=== PATIENT | male | born 1980 | race Caucasian/White ===

== ENCOUNTER 2022-11-25 15:41 | Outpatient (REF) | payer SELFPAY ==
[2022-11-25 15:32] LABS: Anion Gap 5.4 mmol/L (3-11); BUN 21 mg/dL (7-18); CO2 32.6 mmol/L (21.0-32.0); CREATININE 1.2 mg/dL (0.70-1.30); Calcium 9.1 mg/dL (8.5-10.1); Chloride 102 mmol/L (98-107); Estimated GFR 77.43 (mL/min/1.73m2); Glucose 99 mg/dL (74-106); Potassium 3.4 mmol/L (3.5-5.1); Sodium 140 mmol/L (136-145)
[2022-11-25 15:55] LABS: Calculated LDL 116 mg/dL (<100); Cholesterol 184 mg/dL (<200); HDL Cholesterol 61 mg/dL (40-60); Triglyceride 38 mg/dL (<150)
== END 2022-11-25 15:42 | disposition home or self-care (01) ==
LOC: NCHCN 15:41
PROVIDERS: Visit Provider Physician Assistant
DX: Z00.00 Encounter for general adult medical examination without abnormal findings (principal); Z13.220 Encounter for screening for lipoid disorders; Z13.228 Encounter for screening for other metabolic disorders
CPT/HCPCS: 80048; 80061

== ENCOUNTER 2024-10-01 10:43 | Day surgery (SDC) | payer BC, SELFPAY ==
--- NOTE | 2024-10-01 10:21 | W.PM.DSUDISC ---
Date of service: 10/01/24 Discharge Plan Disposition Patient Disposition: Home Condition: Good Discharge Details Reason For Visit: Right ring finger ganglion cyst Attending Provider: Shaw Rosas Primary Care Provider: Nahid Umaña Home Meds and New Rx's Prescriptions: Continued Claritin-D 12 Hour 5-120 mg tablet extended release 12 hr 1 tab PO Q12H PRN Discharge Instructions Additional Instructions: Cyst Excision Discharge Instructions Activity: You should keep the hand elevated as much as possible for the first few days. You may use the other fingers as tolerated but avoid trying to do too much too soon. You may perform light activities with the dressing in place. Dressing: Your dressing may be removed after 48 hours. Clean incision and cover with light gauze dressing or bandaide daily. Medications: - You should take Tylenol and Ibuprofen for baseline pain control. - You may apply ice over the finger. Follow-up: 7-10 days Stand Alone Forms: Mirna Stock ([facility]) Referrals: Shaw Rosas MD [ [facility] STAFF PHYSICIAN] - Activity:: Elevate Remove Dressings/Wound Care:: 48 hours Shower/Bathe:: 48 hours Diet:: As Tolerated Discharge Orders Discharge Orders: Discharge Order (Routine); Ordered 10/01/24 Ordered By: Benita Vega
[2024-10-01 10:42] VITALS: BP 129/72; PULSE 94; RESP 18; TEMP 37; O2SAT 98
[2024-10-01] MEDS: Sodium Bicarbonate 50 MEQ/50 ML VIAL (11:15)
[2024-10-01] MEDS: Lidocaine 1% Pres-Free W/EPI 1/200,000 10 ML VIAL (11:15)
[2024-10-01 11:30] VITALS: BP 119/74; PULSE 90; RESP 16; TEMP 36; O2SAT 97
--- NOTE | 2024-10-01 14:05 | W.PM.OP ---
Operative Note Operative Note PRE-OP DIAGNOSIS: Right Ring Finger Cyst POST-OP DIAGNOSIS: same (Right Ring Finger Epidermoid Cyst) PROCEDURE: Epidermoid Cyst Excision - Right Ring Finger SURGEON: Shaw Rosas ANESTHESIA TYPE: Local By Surgeon Refer to Anesthesia Record ESTIMATED BLOOD LOSS: 0 PATHOLOGY: none sent COMPLICATIONS: None Patient was transported to: same day Patient's condition: stable Indications: I have seen Domo in clinic for symptoms of a cyst about the right ring finger. The mass persisted and caused pain to direct contact and with use. The likely diagnosis of a epidermoid cyst was made. The symptoms had not responded to conservative measures. I discussed cyst excision with the patient. I reviewed the risks of the procedure to include, but not limited to, bleeding, infection, pain, stiffness, recurrence, damage to nerves or vessels. Despite these risks, the patient elected to proceed. Findings: The mass about the ulnar aspect of the ring finger was identified with a glossy white capsule. There were no adhesions to the capsule and it was easily removed from the finger. The internal portions of the capsule had a caseating type appearance consistent with epidermoid cyst. Procedure Description: Domo was greeted in the preoperative holding area where the correct side was identified and marked. The consent was reviewed with the patient and signed. All questions were answered. He was taken back to the operating room. The patient was placed into the supine position on the operating room table with the right arm on an arm board. All bony prominences were well padded. No prophylactic antibiotics were administered since this was a clean, elective hand surgical case. The right arm was then prepped with Chloraprep and draped in a standard fashion with stockinette and extremity drape. A timeout to confirm correct identity, side and site, procedure, allergies, anesthesia, and medical concerns was performed. A digital block was then performed using 1% lidocaine with epinephrine and buffered with sodium bicarbonate. This was allowed time to set up completely and was tested before proceeding with the case. A longitudinal incision was then made overlying the mass. The skin was incised sharply. Full-thickness flaps were then elevated to expose the cyst. The cyst capsule was glossy white consistent with epidermoid cyst. A portion the cyst was punctured upon entry through the skin where a caseating, white cheeselike material, was encountered. Once again, this was consistent with an epidermoid cyst. The cyst capsule was fully dissected from surrounding tissues and was removed from the finger in whole. There were no attachments to surrounding tissues. The finger was irrigated. The skin was then closed using a #4-0 nylon in interrupted fashion. The finger was dressed with Xeroform, 4 x 4, conform dressing. The patient tolerated the procedure well and was returned to the Same Day Surgery area in a stable condition suffering no known complication. Date of Procedure: 10/01/24
== END 2024-10-01 11:40 | disposition home or self-care (01) ==
LOC: SUR 10:44
PROVIDERS: PCP Physician Assistant; Visit Provider Student in an Organized Health Care Education/Training Program
PROC: (CPT 26160; principal; 2024-10-01 13:15)
DX: L72.8 Other follicular cysts of the skin and subcutaneous tissue (principal)
CPT/HCPCS: 11422; J2004